=== PATIENT | male | born 1960 | race Caucasian/White ===

== ENCOUNTER 2024-02-04 08:00 | Day surgery (SDC) | payer OTHER, SELFPAY ==
[2024-01-21 10:34] VITALS: BMI 33.4
[2024-01-21 11:08] LABS: % Basophils 0.6 % (0-2); % Eosinophils 0.7 % (0-6); % Immature Granulocytes 0.7 % (0-0.5); % Lymphocytes 15.4 % (20.5-51.1); % Monocytes 7.9 % (1.7-9.3); % Neutrophils 74.7 % (42.2-75.2); Absolute Basophils 0.1 10^3/uL (0-0.2); Absolute Eosinophils 0.1 10^3/uL (0-0.7); Absolute Immature Granulocytes 0.1 10^3/uL (0-0.05); Absolute Lymphocytes 1.5 10^3/uL (1.2-3.4); Absolute Monocytes 0.8 10^3/uL (0.1-0.6); Absolute Neutrophils 7.1 10^3/uL (1.4-6.5); Hematocrit 39.4 % (39.0-52.0); Hemoglobin 12.5 g/dL (13.0-18.0); Mean Corp Hgb Conc. 31.7 g/dL (33.0-37.0); Mean Corpuscular Hgb 26.3 pg (27.0-31.0); Mean Corpuscular Volume 82.8 fL (80.0-94.0); Mean Platelet Volume 10.1 fL (7.4-10.4); Nucleated Red Blood Cells % 0 % (-); Platelet Count 304 10^3/uL (130-400); Red Blood Cell Count 4.76 10^6/uL (4.70-6.10); Red Cell Dist. Width 20.3 % (11.5-14.5); White Blood Cell Count 9.5 10^3/uL (4.8-10.8)
[2024-01-21 11:13] LABS: INR 1.09; PT 13.9 Sec (11.4-14.6)
[2024-01-21 11:25] LABS: ALT (SGPT) 39 U/L (0-50); AST (SGOT) 47 U/L (17-59); Albumin 3.6 g/dl (3.5-5.0); Alkaline Phosphatase 1003 U/L (38-126); Blood Urea Nitrogen 27 mg/dl (9-20); Calcium 9.6 mg/dl (8.4-10.2); Carbon Dioxide 30 mmol/L (22-30); Chloride 93 mmol/L (98-107); Estimated Creatinine Clearance 91 ml/min; Glucose 456 mg/dl (70-99); Potassium 4.7 mmol/L (3.5-5.1); Sodium 136 mmol/L (135-145); Total Bilirubin 1.6 mg/dl (0.2-1.3); eGFR > 60.00
--- NOTE | 2024-01-21 13:35 | W.SUR.PREOP ---
Pre-Operative Surgical Note
-
Critically high blood glucose of 456 noted on pre-op BW 01/20.
The patient does have a h/o brittle insulin dependent diabetes. Is already on Novolog standing order w/ meals, Levemir BID, Farxiga, Metformin, and Ozempic.
Called patient twice and ended up speaking to .
reports that is 'stubborn' and 'does not watch what he eats'.
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
Call made urgently to Dr. Gutierrez's office for further care. They will reach out to the patient today.
Right-sided testicular wound w/ mild serosanguineous drainage in the setting of hydradenitis suppurativa and poorly controlled diabetes.
Patient noted drainage ongoing over last month.
Had a h/o this previously on the left side which did require surgery remotely.
No active wounds near groin sites.
Did advise patient see PCP prior to procedure for further medical management.
[2024-02-04] VITALS (16 sets, daily range): BP systolic 84–126; BP diastolic 67–95
[2024-02-04 08:50] LABS: Glucose - Point of Care 147 mg/dl (70-99)
[2024-02-04] MEDS: NSS 500 IV (08:52)
[2024-02-04 11:12] LABS: ACT-LR - POC 248 Seconds (116-155)
[2024-02-04 11:31] LABS: ACT-LR - POC 244 Seconds (116-155)
[2024-02-04 11:52] LABS: ACT-LR - POC 248 Seconds (116-155)
--- NOTE | 2024-02-04 12:02 | ITS.CL.ABL ---
Addendum entered and electronically signed by Toy Mascorro MD 02/04/24 12:15:
EJection fraction under anesthesia in atrial fibrillation on intracardiac ultrasound was mildly to moderately depressed 40-45%.
Original Note:
[employer] - Ablation
Ablation
Procedure Report:
ELECTROPHYSIOLOGY ABLATION STUDY
DATE:: February 04, 2024 REFERRING: Dr. Reji Vogel
INDICATION: Persistent supraventricular tachycardia in the form of atrial fibrillation. Patient also noted to have an atypical flutter on some device tracings although morphology in the lab has a flat P wave everywhere and he has an underlying
atrial fibrillation.
HISTORY: See H and P. History of elevated blood sugars status post glucose on arrival of 147. 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 He has a prior dual-chamber advised a MRI safe pacemaker and prior CABG.
ANTIARRHYTHMIC DRUG: Amiodarone
PRE-PROCEDURE VERA: No atrial thrombus on intracardiac ultrasound
PRESENTING RHYTHM: Atrial fibrillation
'TIME-OUT': called and confirmed.
SEDATION/ANESTHESIA: provided via the anesthesia department using general anesthesia (LMA).
INTRAVENOUS/ARTERIAL ACCESS:
Ultrasound demonstrated that the left femoral artery and vein were overlying with the femoral artery protecting exposure to the left femoral vein completely. We did attempt 1 trial of access which brought about femoral arterial access and the
needle was withdrawn and pressure was held for the remainder of the procedure. There was no bruit or hematoma. There is no evidence on ultrasound of any vascular communication. We proceeded to perform the complete case through the right femoral
vein.
Right femoral venous -9 E[place]an and 8 [place]an
Ultrasound guidance for bilateral femoral vein access was utilized by me to obtain access with demonstration of normal anatomy
CHADS-VASC Score:
HAS-Bled Score
PROCEDURE:
1. The PFA catheter was utilized to pace and record from the left atrium.
2. The intracardiac ultrasound catheter was positioned in the RA to identify the FO for targeting of transseptal puncture, assist in identification of the pulmonary vein ostia, monitoring pre and post ablation pulmonary vein flow velocities,
monitoring for 'bubble' formation during RF application as a sign of thermal injury, and to monitor for pericardial effusion during mapping and ablation procedure. Left atrial size, LV ejection fraction, and pulmonary vein flows were monitored
pre and post ablation procedure. The other valves were inspected and found to be free of significant regurgitation or stenosis.
3. Half of the calculated heparin bolus was administered prior to the first transeptal puncture. Transseptal puncture was performed to diagnose RA and LA pressure so that safety of LA mapping and ablation could be further assessed, and to access
the left atrium and pulmonary veins for mapping and ablation. This entailed advancing an 12 [place]an Contour sheath with dilator apparatus into the superior vena cava and withdrawing both (monitoring intracardiac ultrasound, fluoroscopy and tip
pressure) with the tip oriented toward the atrial septum. The fossa ovalis was engaged (indicated by sudden displacement of the sheath tip as well as tenting of the fossa seen on intracardiac ultrasound). Left atrial access required a pass with
the [place] needle extended. Left atrial catheter position was confirmed by pressure monitoring (RA mean pressure 8 mm Hg and LA mean presure 14 mm Hg), LA saturation (99%), as well as fluoroscopy. The sheath was advanced over the dilator
and positioned in the left atrium. This procedure was repeated for the Agilis sheath. The remainder of the calculated heparin bolus was administered and heparin was
infused to maintain ACT at 300 -350 seconds throughout the case.
4. RA pacing was performed via the proximal decapolar poles and LA pacing was performed via the distal decapolr poles.
5. A quadrapolar catheter was first positioned at the His position for His Bundle recording which was tagged via the 3-D Navex sytem, and then passed to the RVA for RV pacing and recording.
6. The pulse select and multipolar catheter were placed in each of the LIPV, LSPV, RSPV and the RIPV.
7. Next, a 3-D map was created using Navex. A 3-D reconstructed CT image was compared to the 3-D Navex map to assist in anatomic interpretation, mapping and ablation. The CT image and the NavX image were fused.
8. A total of 84 lesions were given during this procedure targeting pulmonary vein and extrapulmonary vein substrate. PVI was performed and posterior wall isolation was performed and the patient was cardioverted to sinus rhythm. Multipolar
catheter recorded entrance and exit block in all 4 pulmonary veins and exit block out of the left atrial posterior wall although there was a small area in the center of the posterior wall at the floor of far field potential which was targeted with
additional PFA lesions and after this there was entrance and exit block in the left atrial posterior wall. We then performed EP study and the patient was noninducible for other tachyarrhythmia.
9. The patient was left in AAIR�DDDR mode at 60-130 beats a minute. [id number]-[id number]-siatn suture was utilized for the right femoral vein access and the left site had no hematoma or bruit.
TOTAL FLOURO TIME: 17.5 minutes 484 mGy
TOTAL RF DURATION: 0 minutes
REVERSAL OF HEPARIN: 35 mg of protamine, slow IV administration
COMPLICATIONS:
None
Intracardiac US shows no pericardial effusion post ablation.
SUMMARY:
Complex left atrial mapping and ablation.
Isolation of all 4 pulmonary veins and isolation of the left atrial posterior wall as above
RECOMMENDATIONS:
1. Admit to monitored bed.
2. Resume anticoagulation
3. Consider same-day discharge
4. Consider discontinuation of amiodarone at discharge. Aggressive glucose control as an outpatient which we discussed with the patient.
Copy to: Dr. Reji Vogel
[2024-02-04] MEDS: TYLENOL 650 MG PO (13:07)
[2024-02-04 13:08] LABS: Glucose - Point of Care 158 mg/dl (70-99)
[2024-02-04 14:28] LABS: Glucose - Point of Care 171 mg/dl (70-99)
--- NOTE | 2024-02-04 15:07 | W.PN.UPDATE ---
Update Note
Progress Note Update
63 yo WM s/p PVI (same day) He feels good, no cp, sob, camila diet, groin c/d/i, soft, EKG Apaced. He will continue OAC Xarelto dose at 7pm at home. He will stop Amiodarone and continue metoprolol. Activity restrictions reviewed. He will f/u
Lela in 2 mo. He is for d/c home after 5:15p as long as groin stable and voiding.
SUMMARY:
Complex left atrial mapping and ablation.
Isolation of all 4 pulmonary veins and isolation of the left atrial posterior wall as above
RECOMMENDATIONS:
1. Admit to monitored bed.
2. Resume anticoagulation
3. Consider same-day discharge
4. Consider discontinuation of amiodarone at discharge. Aggressive glucose control as an outpatient which we discussed with the patient.
Copy to: Dr. Reji Vogel
== END 2024-02-04 17:15 | disposition home or self-care (01) ==
LOC: CATH 08:00
PROVIDERS: ATTENDING PHYSICIAN Internal Medicine Cardiovascular Disease; FAMILY PHYSICIAN Family Medicine; OTHER PHYSICIAN Internal Medicine Cardiovascular Disease
DX: I48.19 Other persistent atrial fibrillation (principal); I48.92 Unspecified atrial flutter; I11.0 Hypertensive heart disease with heart failure; I50.32 Chronic diastolic (congestive) heart failure; E78.00 Pure hypercholesterolemia, unspecified; I25.10 Atherosclerotic heart disease of native coronary artery without angina pectoris; Z95.1 Presence of aortocoronary bypass graft; Z95.0 Presence of cardiac pacemaker; I08.1 Rheumatic disorders of both mitral and tricuspid valves; J44.9 Chronic obstructive pulmonary disease, unspecified; G47.33 Obstructive sleep apnea (adult) (pediatric); R06.09 Other forms of dyspnea; K21.9 Gastro-esophageal reflux disease without esophagitis; E11.40 Type 2 diabetes mellitus with diabetic neuropathy, unspecified; H81.09 Meniere's disease, unspecified ear; F32.A Depression, unspecified; E66.9 Obesity, unspecified; Z68.33 Body mass index [BMI] 33.0-33.9, adult; Z87.891 Personal history of nicotine dependence; Z79.4 Long term (current) use of insulin; Z79.82 Long term (current) use of aspirin; Z79.84 Long term (current) use of oral hypoglycemic drugs
CPT/HCPCS: C1732; C1733; C1894; C1730; C1769; C1892; 36415; 75572; 76937; 80053; 82962; 83735; 85025; 85347; 85610; 86850; 86900; 86901; 93005; 93656; Q9967

== ENCOUNTER 2025-06-04 12:23 | Day surgery (SDC) | payer OTHER, SELFPAY ==
[2025-06-04 12:40] VITALS: BMI 38.4
[2025-06-04 12:45] LABS: Hematocrit 37.5 % (39.0-52.0); Hemoglobin 12.2 g/dL (13.0-18.0); Mean Corp Hgb Conc. 32.5 g/dL (33.0-37.0); Mean Corpuscular Volume 85.0 fL (80.0-94.0); Platelet Count 242 10^3/uL (130-400); Red Cell Dist. Width 15.9 % (11.5-14.5)
[2025-06-04 13:08] VITALS: BP 124/72
[2025-06-04 13:14] LABS: Blood Urea Nitrogen 19 mg/dl (9-20); Calcium 9.6 mg/dl (8.4-10.2); Carbon Dioxide 27 mmol/L (22-30); Chloride 101 mmol/L (98-107); Estimated Creatinine Clearance > 125 ml/min; Glucose 185 mg/dl (70-99); Potassium 4.7 mmol/L (3.5-5.1); Sodium 135 mmol/L (135-145); eGFR > 60.00
[2025-06-04 13:36] LABS: Glucose - Point of Care 135 mg/dl (70-99)
--- NOTE | 2025-06-04 15:17 | ITS.CL.PACE ---
[employer] - Pacemaker Implant
Pacemaker Implant
Procedure Report:
PACEMAKER GENERATOR CHANGE
Date of Procedure: June 04, 2025
Primary Care Physician: Dr. Fede Santiago
Primary Gummed Tape Press Operator: Dr. Edsras Vogel
Procedures:
1. Removal of a dual chamber PPM generator at [facility]
2. Implant of a new dual chamber PPM generator
Indication of Procedure:
1. PM generator at [facility]
2. Non-reversible symptomatic bradycardia due to: sinus node dysfunction.
Indication/History: The patient is a 64-year-old man with a complex past medical history including pacemaker placement for sick sinus syndrome who presents for pacemaker generator change due to battery at end-of-life. The patient is also on Xarelto
for persistent atrial fibrillation. He has not had significant A-fib burden since his ablation. Xarelto was held for the procedure. Plavix was continued as the patient has multiple prior coronary and peripheral stents.
Antibiotic: 2 g Ancef IV
Sedation/anesthesia: Per anesthesia staff.
Description of Procedure: 'Time out' was called and confirmed. The patient was prepped and draped in sterile fashion. Lidocaine with epinephrine was used for local anesthesia. An incision was made along the previous incision and the device and
leads were carefully dissected from the pocket. Hemostasis was obtained with electrocautery. The leads were from the device header and tested using an external analyzer. The pocket was liberally irrigated with antibiotic solution. Once
testing (see below) showed adequate and stable function, the leads were connected to the generator header and the leads and generator were placed within the pocket. The pocket was closed in the typical fashion.
EXPLANTED PPM GENERATOR: Medtronic model A2DR01 serial number [id number] implanted 10/23/2016
IMPLANTED PPM GENERATOR: Medtronic model W1DR01 serial number [id number]
Existing RA lead: Medtronic 5076�52 serial number [id number] implant date 10/14/2007
Existing RV lead: Medtronic 50 76�58 serial number [id number] implant date: 10/14/2007
DEVICE TESTING:
Sensing: RA 2.6 mV, RV 13 mV
Capture: RA 1.0 V@0.4ms, RV 1.5 V@1.0ms
Ohms: RA 430, RV 520
FINAL PROGRAMMING
Richard Pacing: AAIR-DDDR 60-130 ppm
Complications: None
CONCLUSIONS:
1. Successful explant of a dual chamber permanent pacemaker
2. Successful implant of a dual chamber permanent pacemaker
RECOMMENDATIONS:
1. Routine post-op care.
2. In-Office wound check within 7 days.
3. Office interrogation in 4 weeks
[2025-06-04 15:19] VITALS: BP 143/74
[2025-06-04 15:30] VITALS: BP 142/73
[2025-06-04 15:33] LABS: Glucose - Point of Care 153 mg/dl (70-99)
[2025-06-04 15:45] VITALS: BP 136/80
[2025-06-04 16:00] VITALS: BP 144/71
[2025-06-04 16:01] VITALS: BP 133/73
== END 2025-06-04 16:15 | disposition home or self-care (01) ==
LOC: CATH 12:23
PROVIDERS: ATTENDING PHYSICIAN Internal Medicine Interventional Cardiology; FAMILY PHYSICIAN Internal Medicine; OTHER PHYSICIAN Internal Medicine Cardiovascular Disease
DX: Z45.010 Encounter for checking and testing of cardiac pacemaker pulse generator [battery] (principal); I49.5 Sick sinus syndrome; Z79.899 Other long term (current) drug therapy; Z79.02 Long term (current) use of antithrombotics/antiplatelets; Z79.4 Long term (current) use of insulin; Z79.84 Long term (current) use of oral hypoglycemic drugs; Z79.01 Long term (current) use of anticoagulants; Z79.85 Long-term (current) use of injectable non-insulin antidiabetic drugs; I10 Essential (primary) hypertension; I25.10 Atherosclerotic heart disease of native coronary artery without angina pectoris; Z95.5 Presence of coronary angioplasty implant and graft; Z95.820 Peripheral vascular angioplasty status with implants and grafts; J44.9 Chronic obstructive pulmonary disease, unspecified; I08.1 Rheumatic disorders of both mitral and tricuspid valves; I48.19 Other persistent atrial fibrillation; Z87.891 Personal history of nicotine dependence; R91.8 Other nonspecific abnormal finding of lung field; E10.40 Type 1 diabetes mellitus with diabetic neuropathy, unspecified
CPT/HCPCS: 33228; 80048; 82962; 85027; C1785